=== PATIENT | female | born 1975 | race Caucasian/White ===

== ENCOUNTER 2017-02-28 15:15 | Emergency (ER) | payer BC ==
--- NOTE | 2017-03-06 15:59 | ER ---
ADMIT: 02/28/2017 RM/LOC: ER [facility] MR#: [id number] [address] [id number] [address] [place] [address] Emergency Room Report SEX: F AGE: 41 : 1975 DATE: 02/28/2017 ADDENDUM: This patient comes into the ER because she has had very heavy vaginal bleeding for the last 4 days. She states her period before that was 2 weeks ago. She says this happened to her in the past where she will have irregular heavy periods. She had a lot of pain yesterday, has no pain now. No lightheadedness. Able to eat and drink normally. On physical exam, her abdomen is soft. Vital signs are normal. CBC, BMP, and tests were negative. DIAGNOSIS: Dysfunctional uterine bleeding. I wrote a prescription for Provera 10 mg. She is to follow up with Dr. Mancera next week. Please see my T-sheet. M[facility] Field / Fareed Barbour MD / lucial JOB #: [id number] CC: Fareed Barbour MD, Attending Physician Kris Mancera MD, Family Physician
== END 2017-02-28 17:19 | disposition home or self-care (01) ==
LOC: ER 15:15
DX: N93.8 Other specified abnormal uterine and vaginal bleeding (principal); N92.1 Excessive and frequent menstruation with irregular cycle; I10 Essential (primary) hypertension; F17.210 Nicotine dependence, cigarettes, uncomplicated; Z90.89 Acquired absence of other organs; Z90.49 Acquired absence of other specified parts of digestive tract; Z79.899 Other long term (current) drug therapy; Z88.1 Allergy status to other antibiotic agents